=== PATIENT | female | born 1980 | race African-American/Black ===

== ENCOUNTER 2023-07-04 16:55 | Emergency (ER) | payer OTHER ==
[~2023-07-04] VITALS: Ht 165.1 cm; Wt 75.0 kg
[2023-07-04 19:22] VITALS: TEMP 98.5
[2023-07-04] MEDS: IBUPROFEN 600 MG TABLET PO ONE (19:32)
[2023-07-04 19:57] VITALS: BP 117/68; PULSE 91; RESP 17
== END 2023-07-04 19:59 | disposition home or self-care (01) ==
LOC: EMS 16:57
DX: S80.02XA Contusion of left knee, initial encounter (principal); W18.39XA Other fall on same level, initial encounter; Y93.89 Activity, other specified; Y92.89 Other specified places as the place of occurrence of the external cause; Y99.8 Other external cause status
CPT/HCPCS: 99283